=== PATIENT | female | born 1950 | race Caucasian/White ===

== ENCOUNTER 2021-10-10 09:27 | Emergency (ER) | payer MEDICARE, OTHER ==
[~2021-10-10 09:27] MED LIST: AMITIZA8 MCG PO; ASPIRIN325 MG PO; ELAVIL50 MG PO; PERCOCET 5-3251 EACH PO; PRINIVIL10 MG PO; ULTRAM50 MG PO; ZOCOR40 MG PO
[2021-10-10 10:23] LABS: BILIRUBIN NEGATIVE (NEGATIVE); BLOOD NEGATIVE Ery/uL (NEGATIVE); CLARITY CLEAR (CLEAR); COLOR YELLOW (YELLOW); GLUCOSE (U) NORMAL (NORMAL); LEUKOCYTES 1+ Leu/uL (NEGATIVE); NITRITE NEGATIVE (NEGATIVE); PROTEIN NEGATIVE (NEGATIVE); SPECIFIC GRAVITY 1.015 (1.001-1.030); UROBILINOGEN 0.2 mg/dL (0.2-1.0); pH 6.5 (5.0-9.0)
[2021-10-10 10:41] LABS: ALBUMIN 3.5 g/dL (3.4-5.0); BILIRUBIN - TOTAL 0.3 mg/dL (0.2-1.0); BUN/CREAT RATIO (CALC) 21.4 RATIO; CREATININE 0.84 mg/dL (0.51-0.95); GLOBULIN (CALCULATION) 3.4 g/dL; POTASSIUM 4.5 mmol/L (3.5-5.1); TOTAL PROTEIN 6.9 g/dL (6.4-8.2)
[2021-10-10 10:46] LABS: BASOPHIL 0.7 % (0-2); EOSINOPHIL 2.4 % (0-7); HCT 33.2 % (37.0-47.0); HGB 10.7 g/dl (12.5-16.0); LYMPHOCYTE 31.7 % (15-48); MCH 28.8 pg (25.0-31.0); MCHC 32.2 g/dL (32.0-36.0); MCV 89.2 fL (78.0-100.0); MONOCYTE 7.4 % (0-12); NEUTROPHIL 57.4 % (41-80); NRBC 0; PLT 237 K/uL (150-400); RBC 3.72 M/uL (4.20-5.40); RDW 13.4 % (11.5-14.0); WBC 5.4 K/uL (4.0-10.5)
[2021-10-10 10:56] LABS: BACTERIA 2+
[2021-10-10] MEDS ORDERED: COLACE100 MG PO (12:00)
[2021-10-10] MEDS ORDERED: DIFLUCAN150 MG PO (12:00)
[2021-10-10] MEDS ORDERED: CIPRO500 MG PO (12:00)
== END 2021-10-10 12:17 | disposition home or self-care (01) ==
LOC: FER 09:27
PROVIDERS: Emergency Medicine
DX: K40.90 Unilateral inguinal hernia, without obstruction or gangrene, not specified as recurrent (principal); N39.0 Urinary tract infection, site not specified; I10 Essential (primary) hypertension; K21.9 Gastro-esophageal reflux disease without esophagitis; Z79.899 Other long term (current) drug therapy
CPT/HCPCS: 36415; 80053; 81001; 82150; 83690; 85025; J1885; J2405

== ENCOUNTER → 2021-11-11 | Day surgery (SDC) | payer MEDICARE, OTHER ==
[~2021-11-11] VITALS: Ht 162.6 cm; Wt 63.6 kg
[~2021-11-11] MED LIST changes: +CIPRO500 MG PO; +COLACE100 MG PO; +DAYVIGO5 MG PO; +DIFLUCAN150 MG PO; +NORCO 5-325 TA1 EACH PO; +ONDANSETRON ODT8 MG PO; +PANTOPRAZOLE SO40 MG PO
[2021-11-11 08:25] LABS: HCT 35.6 % (37.0-47.0); HGB 11.6 g/dl (12.5-16.0); MCHC 32.6 g/dL (32.0-36.0); MPV 10.5 fL (6.0-9.5); RDW 14.2 % (11.5-14.0); WBC 8.6 K/uL (4.0-10.5)
[2021-11-11 09:48] LABS: ALBUMIN 4.2 g/dL (3.4-5.0); BILIRUBIN - TOTAL 0.3 mg/dL (0.2-1.0); BUN/CREAT RATIO (CALC) 27.2 RATIO; CREATININE 0.81 mg/dL (0.51-0.95); GLOBULIN (CALCULATION) 3.6 g/dL; POTASSIUM 3.6 mmol/L (3.5-5.1); TOTAL PROTEIN 7.8 g/dL (6.4-8.2)
== END | disposition home or self-care (01) ==
LOC: FAS 07:35
PROVIDERS: Surgery
DX: K40.30 Unilateral inguinal hernia, with obstruction, without gangrene, not specified as recurrent (principal); E78.5 Hyperlipidemia, unspecified; I10 Essential (primary) hypertension; G47.30 Sleep apnea, unspecified; K21.9 Gastro-esophageal reflux disease without esophagitis; Z87.891 Personal history of nicotine dependence
CPT/HCPCS: 36415; 80053; C1727; C1781; J0690; J1170; J2250; J2270; J2405; J2704; J2710; J3010; J7120